=== PATIENT | male | born 1995 | race Two or more races ===

== ENCOUNTER 2023-07-30 12:27 | Emergency (ER) | payer OTHER ==
[~2023-07-30] VITALS: Ht 167.6 cm; Wt 85.7 kg
[2023-07-30 16:21] LABS: HEMATOCRIT 49.2 % (39.0-48.0); HEMOGLOBIN 16.6 g/dL (13-16.00); MEAN CELL VOLUME 88.7 fL (80.0-100.00); MEAN CORPUSCULAR HGB CONC 33.8 g/dl (32.0-36.0); RED BLOOD COUNT 5.55 M/uL (4.00-6.00)
[2023-07-30 16:29] LABS: INR 1.08; PARTIAL THROMBOPLASTIN TIME 35.7 SECONDS (22.0-34.0); PLATELET COUNT 98 K/uL (150-450); PROTHROMBIN TIME 11.3 SECONDS (9.0-11.5)
[2023-07-30 16:35] LABS: ALBUMIN 3.8 gm/dL (3.4-5.0); BILIRUBIN TOTAL 0.52 mg/dL (0.3-1.2); CALCIUM 8.6 mg/dL (8.5-10.1); CREATININE SERUM 1.27 mg/dL (0.70-1.30); GFR 68.55; GLOBULINA 3.4 G/DL (2.4-3.5); POTASSIUM 4.03 mEq/L (3.5-5.1); TOTAL PROTEIN 7.2 gm/dL (6.4-8.2)
== END 2023-07-30 21:14 | disposition home or self-care (01) ==
LOC: ER 12:27
PROVIDERS: General Practice
DX: B34.9 Viral infection, unspecified (principal); R53.81 Other malaise; D72.819 Decreased white blood cell count, unspecified; D69.6 Thrombocytopenia, unspecified; Z20.822 Contact with and (suspected) exposure to COVID-19; Z88.0 Allergy status to penicillin

== ENCOUNTER 2023-08-01 00:12 | Emergency (ER) | payer OTHER ==
[~2023-08-01] VITALS: Ht 167.6 cm; Wt 84.8 kg
[2023-08-01 02:47] LABS: MEAN CELL VOLUME 86.2 fL (80.0-100.00); MEAN CORPUSCULAR HGB CONC 35.1 g/dl (32.0-36.0); PLATELET COUNT 100 K/uL (150-450); RED BLOOD COUNT 5.68 M/uL (4.00-6.00); RED CELL DISTRIBUTION WIDTH 14.2 % (11.5-14.5)
[2023-08-01 02:48] LABS: HEMOGLOBIN 17.2 g/dL (13-16.00); MEAN CORPUSCULAR HEMOGLOBIN 30.2 pg (27.00-32.0)
[2023-08-01] MEDS ORDERED: MEDROL8 MG PO (02:59)
== END 2023-08-01 03:07 ==
LOC: ER 00:13
PROVIDERS: General Practice
DX: B09 Unspecified viral infection characterized by skin and mucous membrane lesions (principal); Z88.0 Allergy status to penicillin